=== PATIENT | male | born 1955 | race Caucasian/White ===

== ENCOUNTER 2023-07-17 11:14 | Emergency (ER) | payer OTHER, SELFPAY ==
[2023-07-17 11:53] VITALS: BP 158/79; PULSE 70; RESP 18; TEMP 36.5; O2SAT 97; BMI 28.0
--- NOTE | 2023-07-17 11:55 | ED.SKABFB ---
HPI - Skin/Abscess/Foreign Bdy General Chief complaint: Skin/Abscess/Foreign Body Stated complaint: Lump left side of abdomen Time Seen by Provider: 07/17/23 16:08 Source: patient, RN notes reviewed and old records reviewed Mode of arrival: ambulatory History of Present Illness HPI narrative: 68-year-old male presents for evaluation of a red painful lump on his left upper back. Patient reports that the area has been swollen with a lump for quite some time. He is unsure exactly how long but over several weeks Over the last 3 days the area has been red and painful Denies any fevers or chills The patient is nondiabetic Related Data Previous Rx's Medication Instructions Recorded cephalexin 500 mg capsule 500 mg PO QID #20 caps 07/17/23 Allergies Allergy/AdvReac Type Severity Reaction Status Date / Time No Known Allergies Allergy Unverified 04/22/20 15:04 [No Known Allergies*] Review of Systems Constitutional: Constitutional: Denies chills and Denies fever(s) Integumentary/Breasts: Skin/Breast: Reports erythema and Reports skin pain PMFSH Past Medical History Medical History (Updated 07/17/23 @ 16:56 by Harry Perry MD) Back abscess Social History Social History Advance Directives: No Advance Directives Information Provided: No Physical Exam Vital Signs: Vital Signs: Last Vital Signs Temp 97.8 F 07/17/23 15:55 Pulse 68 07/17/23 15:55 Resp 14 07/17/23 15:55 BP 159/81 H 07/17/23 15:55 Pulse Ox 100 07/17/23 15:55 O2 Del Method Room Air 07/17/23 15:55 BMI result Body Mass Index 28.0 Const: General: healthy appearing, comfortable, no acute distress, alert and awake Nutritional Appearance: well nourished Orientation/consciousness: patient oriented x3 HEENT: Head: Yes normocephalic and Yes atraumatic Eyes: Eyelids: Yes eyelids normal Conjunctivae: conjunctivae normal Sclerae: sclerae normal Corneas: corneas normal Pupils: Equal, round and reactive pupils present EOM: EOMs intact bilaterally Neck: Neck: Yes full ROM Resp: Effort & Inspection: normal respiratory effort, able to speak in complete sentences and not labored Skin: Other: Patient has an approximately 4 cm diameter mass that is well circumscribed, there is induration but no true fluctuance. There is surrounding erythema. The area is tender to palpation. General skin exam: elasticity normal Neuro: General: patient oriented x3 Cranial nerves: Yes Equal, round and reactive pupils present and Yes Bilaterally intact EOM present Cognition (Neuro): normal cognition Course Course Course Narrative: RME: 68yo M c/o L back painful lump x few days. Admits lump has been there x years but became painful & red a few days ago +indurated red abscess to L side/upper back w/central fluctuance will need I&D Full HPI, ROS and PE to be performed by primary ED provider. Medications Administered Discontinued Medications Generic Name Dose Route Start Last Admin Trade Name Freq PRN Reason Stop Dose Admin Lidocaine/Epinephrine 10 ml 07/17/23 16:22 07/17/23 16:52 Lidocaine Hcl 1%/Epi 1:100,000 30 Ml Vial INFILTRATI 07/17/23 16:23 10 ml ONCE ONE Administration Medical Decision Making Medical Decision Making [facility] Narrative: Patient has a likely infected sebaceous cyst. It is not fluctuant, well-circumscribed mass. This is likely infected sebaceous cyst. Given the large size of discussed with General surgery, Dr. Trammell as who was present and came down to do a bedside I&D himself. Differential Diagnosis Differential Diagnoses: The differential diagnosis associated with the presentation includes Abscess Cellulitis Sebaceous cyst Infected sebaceous cyst Discharge Plan Discharge Clinical Impression: Infected sebaceous cyst Patient Disposition: Home, Self-Care Instructions: Dermal Cyst Excision (DC) Additional Instructions: Take cephalexin 4 times daily for the next 5 days Apply warm compresses every 4 hours for the next 2 days Change the dressing daily Follow-up with Dr. Perry if your symptoms are not improving or worsening Prescriptions: New cephalexin 500 mg capsule 500 mg PO QID Qty: 20 0RF Referrals: Harry Perry MD [Physician] - (infected sebaceous cyst) Interventions: ED Discharge Assessment Last Done: 07/17/23 17:02
[2023-07-17 15:55] VITALS: BP 159/81; PULSE 68; RESP 14; TEMP 36.6; O2SAT 100
--- NOTE | 2023-07-17 15:56 | PC.NURSE ---
patient brought back from waiting room, respirations even and unlabored, skin pwd, alert and oriented x4. Patient has golf ball sized lump on left back that has been bothering him for 3 days. There is pain upon palpation and the lump itself is red. Pt offers no other complaints at this time
--- NOTE | 2023-07-17 16:48 | P.CONGS_ITS ---
History of Present Illness Consult details Consult date: 07/17/23 Narrative: 68M referred for an abscess on the back. He has had a lump on the left upper back for many years which had not bothered him. However, the past few days, this has become very swollen and red. He denies any drainage. He denies any trauma or insect bite to the area. Review of Systems Constitutional: Constitutional: Denies chills and Denies fever(s) Cardiovascular: Cardiovascular: Denies chest pain, Denies dyspnea and Denies dyspnea on exertion Respiratory: Respiratory: Denies cough, Denies dyspnea and Denies dyspnea on exertion Gastrointestinal: Gastrointestinal: Denies hematochezia and Denies change in bowel habits Genitourinary: Genitourinary: Denies hematuria and Denies difficulty urinating Musculoskeletal: Musculoskeletal: Denies back pain and Denies limited range of motion Neurologic: Denies focal weakness and Denies convulsions Psychiatric: Psychiatric: Denies depression and Denies mood swings [facility] Past Medical History Medical History (Updated 07/18/23 @ 00:00 by Antonietta Aguayo) Back abscess Social History Social History Advance Directives: No Advance Directives Information Provided: No Meds Allergies Allergy/AdvReac Type Severity Reaction Status Date / Time No Known Allergies Allergy Unverified 04/22/20 15:04 [No Known Allergies*] Physical Exam Vital Signs: Vital Signs: Last Vital Signs Temp 97.8 F 07/17/23 15:55 Pulse 68 07/17/23 15:55 Resp 14 07/17/23 15:55 BP 159/81 H 07/17/23 15:55 Pulse Ox 100 07/17/23 15:55 O2 Del Method Room Air 07/17/23 15:55 BMI result Body Mass Index 28.0 Const: General: comfortable and no acute distress Resp: Effort & Inspection: normal respiratory effort Cardio: Rate: regular rate Back/Spine/Pelvis: Other: large mass with central fluctuance about 3 cm, left upper back, with erythematous skin Results Labs Labs: All other labs normal. Assessment and Plan (1) Back abscess: Status: Acute This appears to be secondary to an infected epidermal inclusion cyst. I explained to him it is best to proceed with I and D. I explained the technqiue of the procedure as well as the risks, benefits and alternatives. He had given verbal consent. I and D was done under local anesthesia. He tolerated the procedure well. He was given wound care instructions. I told him he can call the office if he has concerns about the healing dwon the line. Procedures Date of Service Date of Service: 07/19/23 Abscess I/D Consent for Procedure: Elective - informed consent obtained Site: back Side (if applicable): left (upper) Sedation/analgesia: none Anesthetic used: lidocaine 1% Technique: incised with #11 blade Additional comments: A cruciate incision was made and the abscess cavity was entered. Large amounts of pus and sebaceous material was drained. I removed the cyst capsule as well. I applied a light packing. He tolerated the procedure well. There was minimal blood loss.
== END 2023-07-17 17:07 | disposition home or self-care (01) ==
PROVIDERS: Emergency Provider Emergency Medicine
DX: L02.212 Cutaneous abscess of back [any part, except buttock and flank] (principal); L72.3 Sebaceous cyst; M54.50 Low back pain, unspecified
CPT/HCPCS: 10060; 10061; 99284

== ENCOUNTER → 2023-07-17 15:54 | Outpatient (BNV) | payer OTHER, SELFPAY | PROVIDERS: Emergency Provider Emergency Medicine; Visit Provider Surgery | DX: L02.212 Cutaneous abscess of back [any part, except buttock and flank] (principal) | CPT/HCPCS: 10060; 99283 ==